=== PATIENT | female | born 1960 | race Caucasian/White ===

== ENCOUNTER 2019-09-15 04:22 | Observation (INO) | payer OTHER ==
[~2019-09-15] VITALS: Ht 149.9 cm; Wt 64.5 kg
[2019-09-15] VITALS (7 sets, daily range): BP systolic 101–129; BP diastolic 55–68; Ht 149.9 cm; Wt 64.5 kg
--- NOTE | ~2019-09-15 | HEMODYNAMI ---
PATIENT:ZEE CHURCH MEDICAL RECORD: [id number] : 64 LOCATION[facility] [id number] [id number] ADMISSION DATE: 09/15/19 Generatedon:09/16/20199:00 Patient name: ZEE CHURCH Patient #: [id number] SSN: [id number] : 1960 Date of study: 09/16/2019 Page: Of Hemodynamic Procedure Report Patient Data Patient Demographics Procedure consent was obtained First Name: ZEE Gender: Female Last Name: RANJIT : 1960 [facility] Initial: J Age: 58 year(s) Patient #: [id number] Race: SSN: [id number] Additional ID: [id number] Contact details Address: [place] [address] State: [place] City: [place] Zip code: [address] Past Medical History Allergies: No known allergies Admission Admission Data Admission Date: 09/15/2019 Admission Time: 6:31 Room #: [facility] Lab Results Lab Result Date: 09/16/2019 Lab Result Time: 2:00 CBC Name Units Result Min Max Hematocrit % 41 -*(----)-- 42 54 Hemoglobin g/dl 13.6 --(*---)-- 13.5 17.5 Procedure Procedure Types Cath Procedure Diagnostic Procedure [facility] w/Coronaries Procedure Description Procedure Date Procedure Date: 09/16/2019 Procedure Start Time: 8:49 Procedure End Time: 8:58 Procedure Staff Name Function Aura Mack RT Scrub Bita Harrison RT Scrub John Denton RT Monitor Clark Aiken RN Nurse Nick Forrester MD Performing Physician Procedure Data Cath Procedure Fluoroscopy Diagnostic fluoroscopy Total fluoroscopy Time: 1 time: 1 min min Diagnostic fluoroscopy Total fluoroscopy dose: 194 dose: 194 mGy mGy Contrast Material Contrast Material Type Amount (ml) Isovue 370 52 Entry Location Entry Primary Successful Side Size Upsize Upsize Entry Closure Succes sful Closure Location (Fr) 1 (Fr) 2 (Fr) Remarks Device Remarks Femoral Right 5 Fr Exoseal artery Diagnostic catheters Device Type Used For End Catheter Placement MULTIPACK JL 4.0 5Fr Left Coronary catheter Angiography MULTIPACK 3DRC 5Fr Right Coronary catheter Angiography MULTIPACK Pigtail 5 Fr LV Angiography catheter Procedure Complications No complications Procedure Medications Medication Administration Route Dosage Oxygen etCO2 Nasal cannula 2 l/min Lidocaine 2% added to field 20 Heparin Flush Bag added to field 2 bags (1000units/500ml NS) 0.9% NaCl I.V. 100 ml/hr Versed I.V. 1 mg Fentanyl I.V. 50 mcg Versed I.V. 1 mg Fentanyl I.V. 50 mcg Hemodynamics Rest HGB: 13.6 (g/dl) Heart Rate: 65 (bpm) Pressure Samples Time Site Value (mmHg) Purpose Heart Use Rate(bpm) 8:53 LV 137/17,19 EDP 83 Gradients Valve Time Site Site Mean SEP/DFP Peak To Heart Use 1 2 (mmHg) (sec/min) Peak Rate (mmHg) (bpm) Aortic 8:54 LV AO 85 Snapshots Pre Cath Intra NCS Post Cath Vital Signs Time Heart Resp SPO2 etCO2 NIBP (mmHg) Rhythm Pain Sedation Rate (ipm) (%) (mmHg) Status Level (bpm) 8:30:49 64 17 98 38.8 154/61(113) NSR 0 (11) 10(A) , No pain 8:35:05 71 17 100 32.8 141/77(117) NSR 0 (11) 10(A) , No pain 8:39:19 73 14 99 38 143/79(107) NSR 0 (11) 10(A) , No pain 8:43:36 72 10 96 36.6 138/71(111) NSR 0 (11) 10(A) , No pain 8:47:47 74 15 100 43.3 126/76(95) NSR 0 (11) 9(A) , No pain 8:51:59 79 17 100 39.6 128/82(108) NSR 0 (11) 9(A) , No pain 8:56:11 85 14 100 47.8 139/82(117) NSR 0 (11) 10(A) , No pain Medications Time Medication Route Dose Verified Delivered Reason Notes Effe ctiveness by by 8:41:57 Oxygen etCO2 2 Nick Buffie used for Nasal l/min St Arjun Aiken woodworking machine offbearer cannula 8:42:04 Lidocaine 2% added 20ml Nick Concepcionory for local to vial [facility] anesthetic field MD BRADLEY 8:42:10 Heparin Flush added 2 Nick Nick used for Bag to bags [facility] procedure (1000units/500ml field MD BRADLEY NS) 8:42:17 0.9% NaCl I.V. 100 Nick Rodas Per ml/hr St Arjun Aiken RN physician 8:42:22 Versed I.V. 1 mg [address] for [facility] Arjun Aiken RN sedation 8:42:28 Fentanyl I.V. 50 Nick Buffie for [facility]jun Aiken RN sedation 8:48:36 Versed I.V. 1 mg Nick J[address]ie for [facility] Arjun Aiken RN sedation 8:48:40 Fentanyl I.V. 50 Nick Buff[address] for mcg St Arjun Aiken RN sedation Procedure Log Time Note 8:10:41 Informed consent obtained and on chart 8:10:53 Procedure Status Urgent Heart Cath (IP). 8:10:55 Time tracking: Regular hours (M-F 7:00 - 5:00) 8:11:01 Plan of Care:Hemodynamics will remain stable., Cardiac rhythm will remain stable., Comfort level will be maintained., Respiratory function will remain adequate., Patient/ family verbilizes understanding of procedure., Procedure tolerated without complication., Recovers from procedure without complications.. 8:11:05 H&P Date Dictated: 09/16/2019 New H&P dictated by physician.. 8:11:13 Patient allergic to No known allergies 8:11:49 Lab Result : BUN 13 mg/dl 8:11:49 Lab Result : Creatinine 0.7 mg/dl 8:11:49 Lab Result : eGFR NONAFRICAN 90 ml/min 8:11:49 Lab Result : Hemoglobin 13.6 g/dl 8:11:49 Lab Result : Hematocrit 41 % 8:13:10 Lab Result : Hematocrit 41 % 8:13:10 Lab Result : Hemoglobin 13.6 g/dl 8:13:21 Stress Test: no; N/A ? 8:16:30 Clark Aiken RN sent for patient. Start room use. 8:21:27 Patient received from Med II to [facility] Alert and oriented. Tansferred to table in Supine position. 8:21:28 Warm blankets applied, and lalito hugger turned on for patient comfort. 8:21:28 Correct patient and procedure confirmed by team. 8:21:29 ECG and BP/O2 sat monitors applied to patient. 8:28:43 Vital chart was started 8:28:46 Baseline sample Acquired. 8:28:49 Rhythm: sinus rhythm 8:28:51 Full Disclosure recording started 8::52 Pre-procedure instructions explained to patient. 8::52 Pre-op teaching completed and patient verbalized understanding. 8:29:01 Family in patients room. 8:29:02 Patient NPO since Midnight. 8:29:04 Is the patient allergic to Iodine/contrast media? No. 8:29:06 Is patient on blood thinner?No 8:29:08 Patient diabetic? No. 8:29:11 Patient not . Patient is over age 55. 8:29:13 Previous problem with sedation/anesthesia? No ? 8:29:21 Snore? Yes 8:29:22 Sleep apnea? No 8:29:23 Deviated septum? No 8:29:24 Opens mouth fully? Yes 8:29:25 Sticks out tongue? Yes 8:29:28 Airway obstruction? No ? 8:29:30 Dentures? No ? 8:29:34 Pre procedure: right dorsailis pedis pulse 1+ Palpable, but thready & weak; easily obliterated 8:30:10 Modified Kiet's test Ulnar > 7 seconds. 8:30:12 Patient pain scale 0/10 ?. 8:30:17 IV patent on arrival in right antecubital with 0.9% NaCl at O. 8:30:20 Lab results completed and on chart. 8:30:23 Right groin area was prepped with chlora-prep and draped in sterile fashion 8:30:24 Alarms reviewed by R. N. 8:30:24 Sharps counted by scrub and verified by R.N. 8:30:26 Use device set Femoral Dx 8:30:27 ACIST Syringe (02635) opened to sterile field. 8:30:28 Bag Decanter (2002S) opened to sterile field. 8:30:29 ACIST Manifold (23808) opened to sterile field. 8:30:29 ACIST Hand Control (53131) opened to sterile field. 8:30:30 Tegaderm 4 x 4 (1626W) opened to sterile field. 8:30:31 Medline Cath Pack ([id number]) opened to sterile field. 8:30:32 DIAGNOSTIC Multipack 5Fr catheter set (JO8364) opened to sterile field. 8:30:33 SHEATH 5FR Newington (DHS162) opened to sterile field. 8:30:33 EMERALD Guide Wire (946-587) opened to sterile field. 8:32:46 Risk of Mortality: .3 8:32:49 Risk of blood transfusion: .1 8:32:52 Risk of URIEL: .2 8:40:33 --------ALL STOP TIME OUT------ 8:40:33 Final Timeout: patient, procedure, and site verified with staff and physician. All members of the team are in agreement. 8:40:35 Right groin site verified by team. 8:40:39 Fire Safety Assessment: A--An alcohol-based skin anteseptic being used preoperatively., C--Open oxygen or nitrous oxide is being used., D--An ESU, laser, or fiber-optic light is being used. 8:40:45 Physical assessment completed. ASA score P 2 - A patient with mild systemic disease as per Nick Forrester MD. 8:40:48 1) 90+ Normal kidney functon but urine findings or structural abnormalities or genetic trait point to kidney disease. 8:40:50 Maximum allowable contrast dose (3.7 X eGFR X 0.75)250 ml. 8:40:53 Sedation plan: IV Moderate Sedation Medication:Versed, Fentanyl 8:41:57 Oxygen 2 l/min etCO2 Nasal cannula was administered by Clark Aiken RN; used for procedure; Verbal order read back and verified. 8:42:04 Lidocaine 2% 20ml vial added to field was administered by Nick Forrester MD; for local anesthetic; Verbal order read back and verified. 8:42:10 Heparin Flush Bag (1000units/500ml NS) 2 bags added to field was administered by Nick Forrester MD; used for procedure; Verbal order read back and verified. 8:42:17 0.9% NaCl 100 ml/hr I.V. was administered by Buffie Aiken RN; Per physician; Verbal order read back and verified. 8:42:22 Versed 1 mg I.V. was administered by Clark Aiken RN; for sedation; Verbal order read back and verified. 8:42:28 Fentanyl 50 mcg I.V. was administered by Clark Aiken RN; for sedation; Verbal order read back and verified. 8:48:36 Versed 1 mg I.V. was administered by Clark Aiken RN; for sedation; Verbal order read back and verified. 8:48:40 Fentanyl 50 mcg I.V. was administered by Clark Aiken RN; for sedation; Verbal order read back and verified. 8:49:22 Procedure started. 8:49:33 Local anesthetic to right femoral artery with Lidocaine 2% by Nick Forrester MD.INITIAL ACCESS ONLY 8:49:43 A 5 Fr sheath was inserted into the Right Femoral artery 8:49:51 A MULTIPACK JL 4.0 5Fr catheter was advanced over the wire and used for Left Coronary Angiography. 8:51:19 LCA angiography performed. 8:51:29 Catheter removed. 8:51:43 A MULTIPACK 3DRC 5Fr catheter was advanced over the wire and used for Right Coronary Angiography. 8:51:46 RCA angiography performed. 8:52:10 Catheter removed. 8:52:29 A MULTIPACK Pigtail 5 Fr catheter was advanced over the wire and used for LV Angiography. 8:52:33 LV angiography performed. 8:52:39 LV hemodynamics recorded. 8:52:43 Zero performed for pressure channel P1 8:53:42 LV gram done using MAE 8:53:50 EF : 55 % 8:54:01 Catheter removed. 8:54:09 Sheath removed intact; hemostasis achieved with Exoseal to the Right Femoral artery. 8:54:12 Procedure ended.(Physican Out) 8:54:24 Contrast amount:Isovue 370 52ml. 8:54:29 Fluoroscopy time 01.00 minutes. 8:54:34 Fluoroscopy dose: 194 mGy 8:54:34 Flurop Dose total: 194 8:54:40 Dose Area Product 99718 mGy/cm. 8:54:51 Sharps counted by scrub and verified by R.N. 8:54:53 Insertion/operative site no bleeding no hematoma. 8:54:55 Post-op/insertion site Right Femoral artery dressed using a 4 x 4 and Tegaderm. 8:54:59 Post right femoral artery:stable 8:55:42 Post Procedure Pulses reassessed and unchanged 8:55:47 Post procedure: right dorsailis pedis pulse 2+ Normal; easily identifiable; not easily obliterated. 8:55:51 Post procedure rhythm: sinus rhythm 8:56:52 Post procedure instruction explained to patient.Patient verbalizes understanding. 8:56:53 Procedure and supply charges have been captured, reviewed, submitted and are correct. 8:57:07 EXOSEAL 5Fr (EX500) opened to sterile field. 8:57:25 Procedure Complication : No complications 8:57:28 Vital chart was stopped 8:57:36 [facility] Findings: mild to moderate CAD (<70%) 8:57:41 Operative report dictated upon procedure completion. 8:57:41 See physician's report for complete and final results. 8:57:43 Report given to PCU. 8:58:01 Patient transfered to PCU with Bed. 8:58:14 Procedure ended. 8:58:14 Full Disclosure recording stopped 8:58:20 End room use (Document Last) 8:59:47 End room use (Document Last) 9:00:14 End room use (Document Last) Device Usage Item Name Manufacture Quantity Catalog Hospital Part Current Minimal L ot# / Number Charge Number Stock Stock Serial# Code ACIST Acist 1 99125 119188 185344 521057 20 Syringe Medical (00611) Systems Inc Bag Microtek 1 2001S 586856 52298 602061 5 Decanter Medical Inc. () ACIST Acist 1 97856 747148 406847 085966 5 Manifold Medical (73393) Systems Inc ACIST Hand Acist 1 66296 974263 712985 450089 5 Control Medical (41645) Systems Inc Tegaderm 4 3M 1 1626W 548387 319527 603035 5 x 4 (1626W) Medline Medline 1 [id number] 736485 20529 540598 5 Cath Pack ([id number]) DIAGNOSTIC Cardinal 1 IL2776 956381 65420 548336 30 Limei Advertising 5Fr catheter set (YT0486) SHEATH 5FR Terumo 1 LFA262 140052 634219 731563 5 Newington (JXK052) EMERALD Cardinal 1 502-455 057543 137953 019266 5 Guide Wire MedPlexus (943-347) MULTIPACK Cardinal 1 508417 5 JL 4.0 5Fr Health catheter MULTIPACK Cardinal 1 173636 5 3DRC 5Fr Health catheter MULTIPACK Cardinal 1 318389 5 Pigtail 5 Health Fr catheter EXOSEAL 5Fr Cardinal 1 EX500 878650 038528 025215 10 (EX500) Health Signature Audit Mason Stage Time Signature Unsigned Intra-Procedure 09/16/2019 Clark Aiken RN 8:59:47 AM Intra-Procedure 09/16/2019 John Denton RT(R) 9:00:14 AM Intra-Procedure 09/16/2019 Nick Cristina 9:00:35 AM Arjun BRADLEY [address] [place] [address]
[2019-09-15 04:56] LABS: BASOPHILS 0.2 % (0-2); EOSINOPHILS 0.8 % (0-7); HEMATOCRIT 40.5 % (36.0-48.0); HEMOGLOBIN 13.7 g/dL (12-16); MCH 31.3 pg (26.0-34.0); MCHC 33.8 g/dL (31.0-37.0); MCV 92.5 fL (80.0-100.0); MEAN PLATELET VOLUME 8.8 fL (7.4-10.4); MONOCYTES 9.7 % (2-11); NEUTROPHILS 61.3 % (40-80); PLATELET COUNT 209 10x3/uL (130-400); RBC 4.38 10x6/uL (4.00-5.40); RDW 12.6 % (11.5-14.5); WBC 6.5 10x3/uL (4.8-10.8)
[2019-09-15 05:10] LABS: APTT 29.3 SECONDS (22.8-39.4); INR 1.02 (0.85-1.17); PROTIME 12.9 SECONDS (11.6-15.0)
[2019-09-15 05:28] LABS: CALC OSMOLALITY 277 mosm/kg (275-300); CALCIUM 8.7 mg/dL (8.5-10.1); CARBON DIOXIDE 22.3 mmol/L (21.0-32.0); CHLORIDE - SERUM 105 mmol/L (98-107); CREATININE - SERUM 0.6 mg/dL (0.6-1.3); GLUCOSE 104 mg/dL (74-106); SODIUM 138 mmol/L (136-145); UREA NITROGEN 17 mg/dL (7-18); eGFR NON AFRICAN AMERICAN > 90 mL/min (90-120)
[2019-09-15 05:42] LABS: ALBUMIN 3.6 g/dL (3.4-5.0); ALKALINE PHOSPHATASE 76 U/L (46-116); ALT (SGPT) 24 U/L (10-68); BILIRUBIN - TOTAL 0.49 mg/dL (0.2-1.3); CKMB 0.4 U/L (0.0-3.6); CREATINE KINASE 52 UL (21-215); PROTEIN - SERUM 7.8 g/dL (6.4-8.2)
[2019-09-15 05:43] LABS: TROPONIN-I < 0.017 ng/mL (0.000-0.060)
--- NOTE | 2019-09-15 05:45 | NUR ---
PT AMBULATED TO RESTROOM WITH A STEADY GAIT. PT FAMILY AT SIDE.
--- NOTE | 2019-09-15 06:02 | NUR ---
PT REPORTS DECREASE IN PAIN AFTER NITRO PATCH. PT RATES PAIN 5/10.
[2019-09-15 06:53] LABS: CHOL - HDL RATIO 3.8 ratio (2.3-4.1); LDL-HDL RATIO 2.4 ratio (1.5-3.5)
[2019-09-15 08:39] LABS: CKMB 0.5 U/L (0.0-3.6); CREATINE KINASE 41 UL (21-215)
[2019-09-15 08:40] LABS: TROPONIN-I < 0.017 ng/mL (0.000-0.060)
[2019-09-15] MEDS ORDERED: ACETAMINOPHEN325 MG PO (08:43)
[2019-09-15] MEDS ORDERED: IBUPROFEN200 MG PO (08:43)
[2019-09-15 10:18] LABS: BASOPHILS 0.2 % (0-2); EOSINOPHILS 0.7 % (0-7); HEMATOCRIT 42.9 % (36.0-48.0); HEMOGLOBIN 14.1 g/dL (12-16); IMMATURE GRANULOCYTES 0.2 % (0-5); LYMPHOCYTES 29.5 % (15-50); MCH 30.9 pg (26.0-34.0); MCHC 32.9 g/dL (31.0-37.0); MCV 93.9 fL (80.0-100.0); MEAN PLATELET VOLUME 9.4 fL (7.4-10.4); NEUTROPHILS 61.4 % (40-80); PLATELET COUNT 230 10x3/uL (130-400); RBC 4.57 10x6/uL (4.00-5.40); RDW 12.8 % (11.5-14.5)
[2019-09-15 10:26] LABS: ALT (SGPT) 21 U/L (10-68); CALC OSMOLALITY 280 mosm/kg (275-300); CALCIUM 8.4 mg/dL (8.5-10.1); CARBON DIOXIDE 20.3 mmol/L (21.0-32.0); CHLORIDE - SERUM 105 mmol/L (98-107); CHOL - HDL RATIO 3.9 ratio (2.3-4.1); CHOLESTEROL, TOTAL 223 mg/dL (0-200); GLUCOSE 107 mg/dL (74-106); HDL CHOLESTEROL 57 mg/dL (32-96); LDL CHOLESTEROL 143 mg/dL (0-100); LDL-HDL RATIO 2.5 ratio (1.5-3.5); POTASSIUM - SERUM 4.1 mmol/L (3.5-5.1); SODIUM 140 mmol/L (136-145); TRIGLYCERIDE 115 mg/dL (30-200); UREA NITROGEN 18 mg/dL (7-18); eGFR NON AFRICAN AMERICAN 78 mL/min (90-120)
[2019-09-15 10:28] LABS: CREATININE - SERUM 0.8 mg/dL (0.6-1.3)
[2019-09-15 14:18] LABS: CKMB 0.5 U/L (0.0-3.6); CREATINE KINASE 41 UL (21-215); TROPONIN-I < 0.017 ng/mL (0.000-0.060)
--- NOTE | 2019-09-15 17:40 | NUR ---
RECEIVED REPORT, WILL ASSUME CARE OF PT, COMPLAINS OF HEADACHE, JUST RECEIVED TYLENOL, EXPLAINED WILL BE NPO FOR CATH IN AM, EATING DINNER AND VISITING WITH FAMILY, BED IS LOW, SRX2, CALL LIGHT IN REACH, WILL CONTINUE PLAN OF CARE
--- NOTE | 2019-09-15 17:58 | NUR ---
CONSENT SIGNED AND PLACED IN CHART
[2019-09-16] VITALS: BP 123/70
--- NOTE | 2019-09-16 04:22 | NUR ---
I have reviewed this patient and I concur with the Shift Assessment completed by the Licensed Practical Nurse today this shift.
[2019-09-16 04:30] VITALS: BP 128/75
[2019-09-16 06:01] LABS: BASOPHILS 0.2 % (0-2); EOSINOPHILS 1.6 % (0-7); HEMOGLOBIN 13.6 g/dL (12-16); LYMPHOCYTES 33.1 % (15-50); MCHC 33.2 g/dL (31.0-37.0); MCV 93.4 fL (80.0-100.0); MEAN PLATELET VOLUME 8.9 fL (7.4-10.4); MONOCYTES 8.8 % (2-11); NEUTROPHILS 56.3 % (40-80); PLATELET COUNT 219 10x3/uL (130-400); RBC 4.39 10x6/uL (4.00-5.40); RDW 12.7 % (11.5-14.5)
[2019-09-16 06:32] LABS: CHLORIDE - SERUM 105 mmol/L (98-107); CREATININE - SERUM 0.7 mg/dL (0.6-1.3); GLUCOSE 93 mg/dL (74-106); MAGNESIUM - SERUM 2.2 mg/dL (1.8-2.4); POTASSIUM - SERUM 4.4 mmol/L (3.5-5.1); SODIUM 140 mmol/L (136-145); eGFR NON AFRICAN AMERICAN > 90 mL/min (90-120)
[2019-09-16 06:50] LABS: CALC OSMOLALITY 278 mosm/kg (275-300); CARBON DIOXIDE 28.2 mmol/L (21.0-32.0); UREA NITROGEN 13 mg/dL (7-18)
[2019-09-16 08:02] VITALS: BP 126/74
--- NOTE | 2019-09-16 08:21 | NUR ---
PRE-OPS GIVEN. TO KILN TENDER BY BED.
--- NOTE | 2019-09-16 09:17 | NUR ---
BACK FROM COMMERCIAL CARPENTER. VS WNL. RIGHT GROIN STABLE WITHOUT BLEEDING OR HEMATOMA NOTED. WILL MONITOR.
--- NOTE | 2019-09-16 09:50 | NUR ---
0946-TEXT TO MAICOL WATT APN TO SEE IF PATIENT CAN BE DISCAHARGED. AWAITING RESPONSE.
--- NOTE | 2019-09-16 09:59 | NUR ---
PATIENT TO REFUSE FLU SHOT WHEN ASKED FOR DISCHARGE REASONS.
[2019-09-16] MEDS ORDERED: PROTONIX40 MG PO (10:36)
--- NOTE | 2019-09-16 10:55 | NUR ---
BED REST UP. GROIN STABLE.
--- NOTE | 2019-09-16 11:40 | NUR ---
IV AND TELEMETRY DCD. DC PLANS GIVEN. UNDERSTANDING VOICED. ESCORTED TO CAR BY W/C.
--- NOTE | 2019-09-16 16:44 | MORECARE ---
CASE MANAGEMENT DISCHARGE SUMMARY PATIENT: ZEE CHURCH UNIT: [id number] ADM DATE: 09/15/19 AGE: 58 : 64 SEX: F ROOM/BED: D.3105 AUTHOR: BRENDA WHITTINGTON PHYSICIAN: REFERRING PHYSICIAN: STACIE FARFAN MD DATE OF SERVICE: 09/16/19 Discharge Plan Patient Name: ZEE CHURCH Facility: [facility]:[place] : 1960 Planned Disposition: Home Anticipated Discharge Date: 09/16/19 Discharge Date: 09/16/2019 Expected LOS: 1 Initial Reviewer: [email or web address] Initial Review Date: 09/16/2019 Generated: 09/16/19 5:43 pm Patient Name: ZEE CHURCH Page 38497 at 1644 All edits/amendments must be made on the electronic document DICTATION DATE: 09/16/191642 MANAGER PHYSICAL: PERRY 09/16/191642 RPT#: [id number] DC DATE:09/16/19 STATUS: DIS IN [facility] [address] [place] [address] END OF REPORT
--- NOTE | 2019-09-17 13:07 | CN ---
PATIENT NAME:ZEE CHURCH MEDICAL RECORD: [id number] : 64 LOCATION:. D.2115 ADMIT DATE: 09/15/19 ACCOUNT: [id number] CONSULTING PHYSICIAN: SHARMAINE VIDES MD REFERRING PHYSICIAN: STACIE FARFAN MD DATE OF CONSULTATION: 09/15/2019 HISTORY OF PRESENT ILLNESS: This is a 58-year-old female with no significant past medical history, admitted with chest pain and pressure accompanied by shortness of breath, nausea and also had awoken from sleep accompanied by tingling of the lower extremities in the left facial area. She does have family history of coronary artery disease and dyslipidemia. EKG shows nonspecific ST-T changes inferolaterally. We are asked to see her concerning her cardiovascular status. PAST MEDICAL HISTORY: Includes history of no significant other major illnesses. ALLERGIES: None known. MEDICATIONS: Occasional ibuprofen and Tylenol. SOCIAL HISTORY: Nonsmoker, nondrinker. Easily able to take care of his ADLs. Mother is 81 years of age. REVIEW OF SYSTEMS: The patient reports easy bruising but reports no swollen glands. The patient reports no fever, no night sweats, no significant weight gain, no significant weight loss. No significant exercise tolerance. The patient reports no dry eyes, no irritation, no vision change. Patient reports no difficulty hearing and no ear pain. Patient reports no frequent nose bleeds or nose and sinus problems. Patient reports on arm pain on exertion. No shortness of breath while lying down. No history of heart murmur. Patient reports no cough, no wheezing or coughing up blood. Patient reports no abdominal pain, no vomiting. Normal appetite. No diarrhea and not vomiting blood. No nausea and no constipation. Patient reports no incontinence. No difficulty urinating. No hematuria. No increased frequency. Patient reports no muscle aches. No weakness, no arthralgias, no back pain. No swelling of the extremities. Patient reports no abnormal mole, no jaundice, no rashes. Reports no loss of consciousness. No weakness and no numbness. No seizures, dizziness, or headaches. The patient reports no depression, no sleep disturbance, feeling safe in a relationship and no alcohol abuse. Patient reports on fatigue. Reports no runny nose or sinus pressure. No itching, no hives, and no frequent sneezing. PHYSICAL EXAMINATION: GENERAL: Pleasant female in no acute distress. VITAL SIGNS: Blood pressure 119/70, pulse 65 and regular. HEENT: Normocephalic, atraumatic. NECK: No bruits are noted. HEART: Regular. II/ systolic ejection murmur. LUNGS: Good air excursion. ABDOMEN: Soft, nontender. EXTREMITIES: Pulses 2+ with no edema. DIAGNOSTIC DATA: EKG: No significant ST-T change as described above. CONSULT REPORT [id number] ZEE CHURCH IMPRESSION: Plan for a carotid Doppler given her paresthesias as well as echocardiographic study with a systolic ejection murmur. Cardiac catheterization in the near future. TRANSINT:[id number] Voice Confirmation ID: [id number] DOCUMENT ID: [id number] SHARMAINE VIDES MD at 1307 CC: [id number] DICTATION DATE: 09/15/19 1013 BRIQUETTE MACHINE OPERATOR HELPER: 09/15/19 1805 DIS IN 09/16/19 [place] [place] [address]
--- NOTE | 2019-09-17 13:07 | EC ---
PATIENT:ZEE CHURCH DATE OF SERVICE: 09/15/19 SEX: F MEDICAL RECORD: [id number] DATE OF : 64 LOCATION:D.M2 D.211 AGE OF PATIENT: 58 ADMISSION DATE: 09/15/19 REFERRING PHYSICIAN: INTERPRETING PHYSICIAN: SHARMAINE VIDES MD ECHOCARDIOGRAM REPORT ECHO CHARGES 4 ECHO COMPLETE Date: 09/15/19 CLINICAL DIAGNOSIS: MURMUR, CHEST PAIN ECHOCARDIOGRAPHIC MEASUREMENTS (adult normal given) AC root (d.<3.7cm) 2.8 cm LV Septum d (<1.2 cm> 1.2 cm Valve Excursion 1.4 cm LV Septum (systole) 1.3 cm Left Atria (s.<4.0cm> 3.4 cm LVPW d(<1.2cm) 1.4 cm RV (d.<2.3cm) 2.6 cm LVPW (sytole) 1.6 cm LV diastole(<5.6CM) 3.9 cm MV E-F(>70mm/sec) cm LV systole 2.2 cm LVOT Diameter 1.6 cm MV exc.(>10mm) 1.5 cm Est.ejection fraction (50-75%) % DOPPLER: LVIT cm/sec A 75.0 cm/sec E 67.0 cm/sec LA cm/sec RVSP 21 mmHg LVOT 87 cm/sec AOP1/2T m/s Asc. Ao 121 cm/sec RVOT 83 cm/sec RA cm/sec PA 109 cm/sec AV Gradient Peak 58.90mmHg AV Mean 3.16 mmHg AV Area 1.5 cm MV Gradient Peak 3.68 mmHg MV Mean 0.94 mmHg MV Area cm COMMENTS: Credit Relationship Manager: 2 BALDEMAR GRAYSON Software Solutions Architect: 3 Dr. Baig TAPE# PACS Pericardial Effusion N DATE OF SERVICE: Adequate 2D, color flow, spectral Doppler, and M-mode. Borderline LVH. LV internal dimension is normal. Wall motion is normal. EF is greater than or equal to 55%. Aortic valve is tricuspid. No evidence of stenosis by Doppler interrogation. Left atrium is normal at 3.4 cm. Mitral valve shows no prolapse. Trace MR. Right-sided chambers grossly normal. Trace TR. ECHOCARDIOGRAM REPORT [id number] ZEE CHURCH TRANSINT:[id number] Voice Confirmation ID: [id number] DOCUMENT ID: [id number] SHARMAINE VIDES MD at 1307 CC: [id number] DICTATION DATE: 09/16/19 100 ASSISTANT PROFESSOR OF SURGERY: 09/16/19 1532 DIS IN 09/16/19 [place] [address] [place] [id number]
--- NOTE | 2019-09-17 13:07 | OP ---
PATIENT NAME: ZEE CHURCH MEDICAL RECORD: [id number] :64 LOCATION:D.M2 D.2115 ADMISSION DATE:09/15/19 SURGEON: SHARMAINE VIDES MD DATE OF OPERATION: 09/16/2019 PROCEDURE: Left heart catheterization, selective coronary angiography, right femoral artery approach. CATHETERS: A 5-Greek sheath, 5/4 left and right Sd, 5/4 pig. The procedure was well tolerated. The patient was returned to the cash. Sheath was removed. ExoSeal device placed. FINDINGS: Left ventriculography in 30-degree MAE view: Normal wall motion, normal systolic function. CORONARY ANATOMY: LEFT MAIN: Left main is free of disease. LAD: Free of disease in the diagonal system. CIRCUMFLEX: Free of disease in marginal system. RIGHT CORONARY ARTERY: Dominant artery, gives rise to PDA, free of disease. IMPRESSION: Normal left ventricular systolic function. Normal coronary anatomy. TRANSINT:[id number] Voice Confirmation ID: [id number] DOCUMENT ID: [id number] SHARMAINE VIDES MD at 1307 CC: [id number] DICTATION DATE: 09/16/[address] RESEARCH ENGINEER: 09/16/19 1208 DIS IN 09/16/19 [place] [address] [place] [address]
== END 2019-09-16 11:41 | disposition home or self-care (01) ==
LOC: D.ER 04:22 → OBSVTIME 06:31 → D.M2 06:31
PROVIDERS: Emergency Medicine; Internal Medicine Interventional Cardiology; ADMIT Family Medicine; ATTEND Family Medicine
DX: I20.0 Unstable angina (principal); E78.5 Hyperlipidemia, unspecified; Z87.891 Personal history of nicotine dependence

== ENCOUNTER 2019-09-17 01:50 | Inpatient (IN) | payer OTHER ==
[~2019-09-17] VITALS: Ht 149.9 cm; Wt 65.9 kg
[~2019-09-17 01:50] MED LIST: ACETAMINOPHEN325 MG PO; IBUPROFEN200 MG PO; PROTONIX40 MG PO
[2019-09-17 02:34] LABS: BASOPHILS 0.1 % (0-2); EOSINOPHILS 0.8 % (0-7); HEMATOCRIT 42.1 % (36.0-48.0); HEMOGLOBIN 14.1 g/dL (12-16); LYMPHOCYTES 21.7 % (15-50); MCH 31.3 pg (26.0-34.0); MCHC 33.5 g/dL (31.0-37.0); MCV 93.6 fL (80.0-100.0); MEAN PLATELET VOLUME 8.9 fL (7.4-10.4); MONOCYTES 7.8 % (2-11); NEUTROPHILS 69.6 % (40-80); PLATELET COUNT 249 10x3/uL (130-400); RDW 12.5 % (11.5-14.5)
[2019-09-17 02:39] LABS: WBC 7.7 10x3/uL (4.8-10.8)
[2019-09-17 02:40] LABS: CALC OSMOLALITY 280 mosm/kg (275-300); CALCIUM 8.8 mg/dL (8.5-10.1); CARBON DIOXIDE 26.7 mmol/L (21.0-32.0); CHLORIDE - SERUM 103 mmol/L (98-107); CREATININE - SERUM 0.8 mg/dL (0.6-1.3); GLUCOSE 123 mg/dL (74-106); POTASSIUM - SERUM 4.4 mmol/L (3.5-5.1); SODIUM 139 mmol/L (136-145); eGFR NON AFRICAN AMERICAN 78 mL/min (90-120)
[2019-09-17 02:41] LABS: UREA NITROGEN 18 mg/dL (7-18)
[2019-09-17 02:48] LABS: ALBUMIN 3.8 g/dL (3.4-5.0); ALKALINE PHOSPHATASE 72 U/L (46-116); ALT (SGPT) 19 U/L (10-68); AMYLASE - SERUM 104 U/L (25-115); BILIRUBIN - TOTAL 0.46 mg/dL (0.2-1.3); LIPASE 144 U/L (73-393); PROTEIN - SERUM 8.1 g/dL (6.4-8.2); TROPONIN-I < 0.017 ng/mL (0.000-0.060)
[2019-09-17 02:56] LABS: APPEARANCE CLEAR (CLEAR); BILIRUBIN NEGATIVE (NEGATIVE); COLOR YELLOW (YELLOW); GLUCOSE NEGATIVE (NEGATIVE); KETONE NEGATIVE (NEGATIVE); NITRITE NEGATIVE (NEGATIVE); PROTEIN NEGATIVE (NEGATIVE); UROBILINOGEN NORMAL (NORMAL)
[2019-09-17 02:57] LABS: BACTERIA NONE SEEN /hpf (NEGATIVE); EPITHELIAL CELLS 0-5 /hpf (0-5); RED CELLS - URINE 0-5 /hpf (0-5)
--- NOTE | 2019-09-17 07:15 | NUR ---
ALERT AND ORIENTED, RESTING IN BED WITH EYES OPEN. NO C/O PAIN. NO S/S OF ACUTE DISTRESS NOTED. UP AD [place]. IV TO LEFT FOREARM, NS INFUSING @ 125ML/HR. SITE PATENT WITHOUT REDNESS OR SWELLING. DENIES ANY NEEDS AT THIS TIME. CALL LIGHT IN REACH. WILL CONTINUE TO MONITOR.
[2019-09-17 08:40] LABS: INR 0.99 (0.85-1.17); PROTIME 12.6 SECONDS (11.6-15.0)
[2019-09-17 09:05] VITALS: BP 123/73
--- NOTE | 2019-09-17 10:46 | NUR ---
LYING IN BED,WITHOUT DISTRESS
[2019-09-17 12:50] VITALS: BP 140/76
[2019-09-17 12:51] VITALS: BP 123/73; BMI 29.3
[2019-09-17 16:38] VITALS: BP 110/58
--- NOTE | 2019-09-17 18:52 | NUR ---
ALERT AND ORIENTED, RESTING IN BED. NO C/O PAIN. NO S/S OF ACUTE DISTRESS NOTED. DENIES ANY NEEDS AT THIS TIME. CALL LIGHT IN REACH. WILL CONTINUE TO MONITOR.
[2019-09-17 19:30] VITALS: BP 122/78
--- NOTE | 2019-09-17 19:35 | NUR ---
PT SITTING UP IN BED WITHOUT DISTRESS, A0X4. FRIEND AT BEDSIDE. IV RIGHT FA INFUSING NS @ 125. DENIES NEEDS OR PAIN AT THIS TIME. CL IN REACH, WILL CTM
[2019-09-17 20:55] VITALS: Ht 149.9 cm; Wt 65.9 kg
[2019-09-18] VITALS (14 sets, daily range): BP systolic 124–140; BP diastolic 71–86
[2019-09-18 06:51] LABS: BASOPHILS 0.4 % (0-2); EOSINOPHILS 1.8 % (0-7); HEMATOCRIT 37.2 % (36.0-48.0); HEMOGLOBIN 12.6 g/dL (12-16); LYMPHOCYTES 33.3 % (15-50); MCHC 33.9 g/dL (31.0-37.0); MCV 94.4 fL (80.0-100.0); MEAN PLATELET VOLUME 9.1 fL (7.4-10.4); NEUTROPHILS 55.5 % (40-80); PLATELET COUNT 202 10x3/uL (130-400); RBC 3.94 10x6/uL (4.00-5.40); RDW 12.7 % (11.5-14.5)
[2019-09-18 06:59] LABS: WBC 4.6 10x3/uL (4.8-10.8)
[2019-09-18 07:03] LABS: ALKALINE PHOSPHATASE 58 U/L (46-116); ALT (SGPT) 16 U/L (10-68); BILIRUBIN - TOTAL 0.45 mg/dL (0.2-1.3); CALC OSMOLALITY 282 mosm/kg (275-300); CALCIUM 8.2 mg/dL (8.5-10.1); CARBON DIOXIDE 25.9 mmol/L (21.0-32.0); CHLORIDE - SERUM 110 mmol/L (98-107); CREATININE - SERUM 0.7 mg/dL (0.6-1.3); GLUCOSE 98 mg/dL (74-106); POTASSIUM - SERUM 4.1 mmol/L (3.5-5.1); PROTEIN - SERUM 6.8 g/dL (6.4-8.2); SODIUM 143 mmol/L (136-145); eGFR NON AFRICAN AMERICAN > 90 mL/min (90-120)
[2019-09-18 07:05] LABS: UREA NITROGEN 8 mg/dL (7-18)
--- NOTE | 2019-09-18 07:10 | NUR ---
PT RESTING IN BED WITH EYES CLOSED. NO S/S OF ACUTE DISTRESS. NO C/O AT THIS TIME. PT HAS BEEN NPO SINCE MIDNIGHT. PT IV IN R FOREARM NS @ 100 ML/HR. IV IS PATENT WITH NO REDNESS OR SWELLING. CALL LIGHT IN PLACE. WILL CONTINUE TO MONITOR.
--- NOTE | 2019-09-18 09:43 | MORECARE ---
CASE MANAGEMENT DISCHARGE SUMMARY PATIENT: ZEE CHURCH UNIT: [id number] ADM DATE: 09/17/19 AGE: 58 : 64 SEX: F ROOM/BED: D.2217 AUTHOR: BRENDA WHITTINGTON PHYSICIAN: REFERRING PHYSICIAN: GENE THORNTON MD DATE OF SERVICE: 09/18/19 Discharge Plan Patient Name: ZEE CHURCH Facility: [facility]:[place] : 1960 Planned Disposition: Home Anticipated Discharge Date: Discharge Date: Expected LOS: Initial Reviewer: [email or web address] Initial Review Date: 09/17/2019 Generated: 09/18/19 10:43 am DCPIA - Discharge Planning Initial Assessment Updated by [email or web address]: Sherri Suresh on 09/18/19 9:41 am * Is the patient Alert and Oriented? Yes * How many steps to enter\exit or inside your home? * PCP NONE * Pharmacy [facility] * Preadmission Environment Home with Family * ADLs Independent * Equipment None * List name and contact numbers for known caregivers / representatives who currently or will assist patient after discharge: HERNÁN [phone] * Verbal permission to speak to the caregivers and representatives has been obtained from the patient. N/A * Community resources currently utilized None * Additional services required to return to the preadmission environment? No * Can the patient safely return to the preadmission environment? Yes * Has this patient been hospitalized within the prior 30 days at any hospital? Yes Patient Name: ZEE CHURCH Page 26167 at 0943 All edits/amendments must be made on the electronic document DICTATION DATE: 09/18/19942 CLAIM APPROVER: PERRY 09/18/19942 RPT#: [id number] DC DATE: STATUS: [facility] [address] [place] [address] END OF REPORT
--- NOTE | 2019-09-18 09:51 | MORECARE ---
CASE MANAGEMENT DISCHARGE SUMMARY PATIENT: ZEE CHURCH UNIT: [id number] ADM DATE: 09/17/19 AGE: 58 : 64 SEX: F ROOM/BED: D.2217 AUTHOR: BRENDA WHITTINGTON PHYSICIAN: REFERRING PHYSICIAN: GENE THORNTON MD DATE OF SERVICE: 09/18/19 Discharge Plan Patient Name: ZEE CHURCH Facility: [facility]:[place] : 1960 Planned Disposition: Home Anticipated Discharge Date: Discharge Date: Expected LOS: Initial Reviewer: [email or web address] Initial Review Date: 09/17/2019 Generated: 09/18/19 10:51 am Comments DCP- Discharge Planning Updated by [email or web address]: Sherri Suresh on 09/18/19 8:[address] Patient Name: ZEE CHURCH Admission Status: ER Accout number: [id number] Admission Date: 09-17-2019 : 1960 Admission Diagnosis: Attending: GENE THORNTON Current LOS: 1 Anticipated DC Date: Planned Disposition: Home Primary Insurance: [employer] Discharge Planning Comments: CM met with patient to complete initial dc planning assessment. CM educated patient on the CM role and verbal consent given by patient to complete assessment. Patient lives at home with her and family. At discharge patient plans to return home and feels this is a safe discharge. CM discussed availability of home health, rehab services, and medical equipment. She stated that she is independent with her care at home. 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 Patient denied known discharge needs at this time. CM will continue to follow and will assist as needed with dc plans/needs Superintendent [employer]: Sherri Suresh DCPIA - Discharge Planning Initial Assessment Updated by [email or web address]: Sherri Suresh on 09/18/19 9:41 am * Is the patient Alert and Oriented? Yes * How many steps to enter\exit or inside your home? * PCP NONE * Pharmacy [facility] [address] * Preadmission Environment Home with Family * ADLs Independent * Equipment None * List name and contact numbers for known caregivers / representatives who currently or will assist patient after discharge: HERNÁN [phone] * Verbal permission to speak to the caregivers and representatives has been obtained from the patient. N/A * Community resources currently utilized None * Additional services required to return to the preadmission environment? No * Can the patient safely return to the preadmission environment? Yes * Has this patient been hospitalized within the prior 30 days at any hospital? Yes Last DP export: 09/18/19 8:43 Patient Name: ZEE CHURCH Page 13491 at 0951 All edits/amendments must be made on the electronic document DICTATION DATE: 09/18/19950 EVENT TECHNICIAN: PERRY 09/18/19950 RPT#: [id number] DC DATE: STATUS: ADM IN [facility] [address] [place] [address] END OF REPORT
--- NOTE | 2019-09-18 11:21 | NUR ---
PT PREOP. SURGERY HAS TAKEN PT OFF THE FLOOR. WILL AWAIT RETURN.
--- NOTE | 2019-09-18 12:18 | NUR ---
[facility] REF [id number] EXP 05/29/2024
[2019-09-18] MEDS ORDERED: HYDROCODON-ACE1 EAC7 PO (12:27)
--- NOTE | 2019-09-18 18:36 | NUR ---
PT DISCHARGED HOME WITH FAMILY, VIA WHEELCHAIR. DISCHARGE INSTRUCTIONS GIVEN TO PT, AND PT DEMONSTRATED UNDERSTANDING. IV TAKEN OUT OF R FOREARM, CATHETER TIP INTACT. PT HAS NO FURTHER COMPLAINTS AT THIS TIME.
--- NOTE | 2019-09-23 12:22 | MORECARE ---
CASE MANAGEMENT DISCHARGE SUMMARY PATIENT: ZEE CHURCH UNIT: [id number] ADM DATE: 09/17/19 AGE: 59 : 64 SEX: F ROOM/BED: D.2217 AUTHOR: PKDOC PHYSICIAN: REFERRING PHYSICIAN: GENE THORNTON MD DATE OF SERVICE: 09/23/19 Discharge Plan Patient Name: ZEE CHURCH Facility: [facility]:[place] : 1960 Planned Disposition: Home Anticipated Discharge Date: Discharge Date: 09/18/2019 Expected LOS: Initial Reviewer: [email or web address] Initial Review Date: 09/17/2019 Generated: 09/23/19 1:21 pm Comments DCP- Discharge Planning Updated by [email or web address]: Sherri Suresh on 09/18/19 8:[address] Patient Name: ZEE CHURCH Admission Status: ER Accout number: [id number] Admission Date: 09-17-2019 : 1960 Admission Diagnosis: Attending: GENE THORNTON Current LOS: 1 Anticipated DC Date: Planned Disposition: Home Primary Insurance: [employer] Discharge Planning Comments: CM met with patient to complete initial dc planning assessment. CM educated patient on the CM role and verbal consent given by patient to complete assessment. Patient lives at home with her and family. At discharge patient plans to return home and feels this is a safe discharge. CM discussed availability of home health, rehab services, and medical equipment. She stated that she is independent with her care at home. Her will be her driver starting gate home. Patient denied known discharge needs at this time. CM will continue to follow and will assist as needed with dc plans/needs Contracting Officer: Sherri Suresh DCPIA - Discharge Planning Initial Assessment Updated by [email or web address]: Sherri Suresh on 09/18/19 9:41 am * Is the patient Alert and Oriented? Yes * How many steps to enter\exit or inside your home? * PCP NONE * Pharmacy [facility] [address] * Preadmission Environment Home with Family * ADLs Independent * Equipment None * List name and contact numbers for known caregivers / representatives who currently or will assist patient after discharge: HERNÁN [phone] * Verbal permission to speak to the caregivers and representatives has been obtained from the patient. N/A * Community resources currently utilized None * Additional services required to return to the preadmission environment? No * Can the patient safely return to the preadmission environment? Yes * Has this patient been hospitalized within the prior 30 days at any hospital? Yes Last DP export: 09/18/19 8:51 Patient Name: ZEE CHURCH Page 66081 at 1222 All edits/amendments must be made on the electronic document DICTATION DATE: 09/23/19 1221 BUSINESS MANAGER [employer]: PERRY 09/23/19 1221 RPT#: [id number] DC DATE:09/18/19 STATUS: DIS IN [facility] [address] [place] [address] END OF REPORT
== END 2019-09-18 18:35 | disposition home or self-care (01) | DRG 419 ==
LOC: D.ER 01:50 → D.MS 05:21
PROVIDERS: Family Medicine; Surgery; ADMIT Internal Medicine Nephrology; ATTEND Internal Medicine Nephrology
PROC: 0FT44ZZ Resection of Gallbladder, Percutaneous Endoscopic Approach (ICD-10-PCS; principal; 2019-09-18 12:30)
DX: K80.00 Calculus of gallbladder with acute cholecystitis without obstruction (principal); K21.9 Gastro-esophageal reflux disease without esophagitis; M19.90 Unspecified osteoarthritis, unspecified site